=== PATIENT | female | born 1965 | race Caucasian/White ===

== ENCOUNTER 2018-08-05 17:04 | Emergency (ER) | payer BC ==
[~2018-08-05] VITALS: Ht 160 cm; Wt 59.1 kg
[2018-08-05 17:08] VITALS: Ht 160 cm; Wt 59.1 kg
[2018-08-05 17:45] LABS: HEMATOCRIT 35.3 % (36.0-48.0); HEMOGLOBIN 12.3 g/dL (12-16); LYMPHOCYTES 28.8 % (15-50); MCH 31.2 pg (26.0-34.0); MCHC 34.8 g/dL (31.0-37.0); MCV 89.6 fL (80.0-100.0); MEAN PLATELET VOLUME 8.6 fL (7.4-10.4); PLATELET COUNT 323 10x3/uL (130-400); RBC 3.94 10x6/uL (4.00-5.40); RDW 12.8 % (11.5-14.5); WBC 4.8 10x3/uL (4.8-10.8)
[2018-08-05 18:00] LABS: ALBUMIN 4.2 g/dL (3.4-5.0); ALKALINE PHOSPHATASE 77 U/L (46-116); ALT (SGPT) 42 U/L (10-68); AMYLASE - SERUM 41 U/L (25-115); BILIRUBIN - TOTAL 0.44 mg/dL (0.2-1.3); CALC OSMOLALITY 278 mosm/kg (275-300); CALCIUM 8.8 mg/dL (8.5-10.1); CARBON DIOXIDE 29.4 mmol/L (21.0-32.0); CHLORIDE - SERUM 102 mmol/L (98-107); CREATININE - SERUM 0.8 mg/dL (0.6-1.3); GLUCOSE 86 mg/dL (74-106); LIPASE 162 U/L (73-393); POTASSIUM - SERUM 3.6 mmol/L (3.5-5.1); PROTEIN - SERUM 7.8 g/dL (6.4-8.2); SODIUM 140 mmol/L (136-145); UREA NITROGEN 14 mg/dL (7-18); eGFR NON AFRICAN AMERICAN 79 mL/min (90-120)
[2018-08-05 19:32] LABS: APPEARANCE CLEAR (CLEAR); BILIRUBIN NEGATIVE (NEGATIVE); COLOR YELLOW (YELLOW); GLUCOSE NEGATIVE (NEGATIVE); KETONE NEGATIVE (NEGATIVE); NITRITE NEGATIVE (NEGATIVE); PROTEIN NEGATIVE (NEGATIVE); SPECIFIC GRAVITY 1.005 (1.005-1.020); UROBILINOGEN NORMAL (NORMAL)
[2018-08-05 20:38] VITALS: BP 129/75
[2018-08-05 21:24] LABS: UDS - AMPHET NEGATIVE QUAL (NEGATIVE); UDS - BARB NEGATIVE QUAL (NEGATIVE); UDS - BENZO NEGATIVE QUAL (NEGATIVE); UDS - COCAINE NEGATIVE QUAL (NEGATIVE); UDS - OPIATE NEGATIVE QUAL (NEGATIVE); UDS - PCP NEGATIVE QUAL (NEGATIVE); UDS - THC NEGATIVE QUAL (NEGATIVE)
== END 2018-08-05 20:40 | disposition home or self-care (01) ==
LOC: D.ER 17:04
PROVIDERS: Family Medicine
DX: G89.29 Other chronic pain (principal); K58.9 Irritable bowel syndrome, unspecified

== ENCOUNTER → 2018-11-17 17:26 | Outpatient (CLI) | payer BC ==
[2018-08-05 17:08] VITALS: BMI 23.0
== END | disposition home or self-care (01) ==
LOC: D.RAD 17:26
DX: N20.0 Calculus of kidney (principal)

== ENCOUNTER → 2018-11-17 18:22 | Outpatient (CLI) | payer MEDICARE ==
[2018-08-05 17:08] VITALS: BMI 23.0
== END | disposition home or self-care (01) ==
LOC: D.LABREF 18:22
DX: R31.9 Hematuria, unspecified (principal)

== ENCOUNTER → 2019-10-05 18:56 | Outpatient (CLI) | payer MEDICAID ==
[2018-08-05 17:08] VITALS: BMI 23.0
== END | disposition home or self-care (01) ==
LOC: D.LABREF 18:56
PROVIDERS: ATTEND Urology
DX: R31.9 Hematuria, unspecified (principal)

== ENCOUNTER → 2019-10-18 13:49 | Outpatient (CLI) | payer MEDICAID ==
[2018-08-05 17:08] VITALS: BMI 23.0
== END | disposition home or self-care (01) ==
LOC: D.CT 13:30
PROVIDERS: ATTEND Urology
DX: R31.21 Asymptomatic microscopic hematuria (principal)

== ENCOUNTER → 2020-01-27 13:54 | Outpatient (CLI) | payer MEDICAID ==
[2018-08-05 17:08] VITALS: BMI 23.0
== END | disposition home or self-care (01) ==
LOC: D.LABREF 13:54
PROVIDERS: ATTEND Urology
DX: N39.0 Urinary tract infection, site not specified (principal)